=== PATIENT | male | born 1985 | race Caucasian/White ===

== ENCOUNTER 2017-12-01 09:04 | Emergency (ER) | payer MEDICAID ==
[~2017-12-01] VITALS: Ht 172.7 cm; Wt 88.9 kg
[2017-12-01 10:03] VITALS: Ht 172.7 cm; Wt 88.9 kg
[2017-12-01 10:47] VITALS: BP 133/66
== END 2017-12-01 10:47 | disposition home or self-care (01) ==
LOC: ED 09:04
DX: S29.011A Strain of muscle and tendon of front wall of thorax, initial encounter (principal); S29.012A Strain of muscle and tendon of back wall of thorax, initial encounter; X58.XXXA Exposure to other specified factors, initial encounter; Y93.89 Activity, other specified; Y92.89 Other specified places as the place of occurrence of the external cause; Y99.8 Other external cause status